=== PATIENT | male | born 1995 | race Two or more races ===

== ENCOUNTER 2021-12-23 16:21 | Emergency (ER) | payer OTHER ==
[~2021-12-23] VITALS: Ht 165.1 cm; Wt 68.9 kg
--- NOTE | 2021-12-23 16:25 | NUR ---
BIB [employer] FOR R 4TH DIGIT SWELLING DUE TO TIGHT RING SINCE YESTERDAY FOR OTB. THE PATIENT RATES PAIN /10. WILL CONTINUE TO MONITOR THE PATIENT.
[2021-12-23] MEDS ORDERED: KETOROLAC TROMETHAMINE 15 MG/ML VIAL ONE (18:25)
[2021-12-23] MEDS ORDERED: LET SOLN TOPICAL 8 ML UDC TP ONE ×2 (18:25→18:30)
[2021-12-23] MEDS ORDERED: KETOROLAC TROMETHAMINE INJ 30 MG/ML VIAL IM ONE (18:30)
[2021-12-23] MEDS ORDERED: IBUP-1955 PO (20:44)
--- NOTE | 2021-12-23 20:53 | NUR ---
Patient discharged to home in stable condition. Written and verbal after care instructions given. Patient verbalizes understanding of instruction.
[2021-12-23 20:54] VITALS: BP 131/77
== END 2021-12-23 20:56 ==
LOC: ER 16:24
DX: M79.644 Pain in right finger(s) (principal); M79.89 Other specified soft tissue disorders
CPT/HCPCS: 99283; 96372; J1885